=== PATIENT | female | born 1990 | race Two or more races ===

== ENCOUNTER 2022-01-05 08:29 | Outpatient (CLI) | payer OTHER | END 2022-01-05 09:55 | disposition home or self-care (01) | LOC: PRENATAL 08:29 | PROVIDERS: ATTEND Obstetrics & Gynecology Maternal & Fetal Medicine | DX: O36.80X0 Pregnancy with inconclusive fetal viability, not applicable or unspecified (principal); Z3A.13 13 weeks gestation of pregnancy ==

== ENCOUNTER 2022-02-23 13:13 | Outpatient (CLI) | payer OTHER | END 2022-02-23 14:30 | disposition home or self-care (01) | LOC: PRENATAL 13:13 | PROVIDERS: ATTEND Obstetrics & Gynecology Maternal & Fetal Medicine | DX: O35.0XX0 Maternal care for (suspected) central nervous system malformation in fetus, not applicable or unspecified (principal); O35.3XX0 Maternal care for (suspected) damage to fetus from viral disease in mother, not applicable or unspecified; O26.879 Cervical shortening, unspecified trimester; Z3A.20 20 weeks gestation of pregnancy ==

== ENCOUNTER 2022-06-22 14:31 | Inpatient (IN) | payer OTHER ==
[~2022-06-22] VITALS: Ht 170.2 cm; Wt 81.6 kg
[2022-07-13] MEDS ORDERED: FOLIC ACID0.8 M1 PO (10:12)
== END 2022-07-15 17:42 | disposition home or self-care (01) | DRG 807 ==
LOC: LDR 07-10 14:29 → OB/GYN 07-13 19:00
PROVIDERS: ADMIT Obstetrics & Gynecology; ATTEND Obstetrics & Gynecology
PROC: 10E0XZZ Delivery of Products of Conception, External Approach (ICD-10-PCS; principal; 2022-07-13)
PROC: 0KQM0ZZ Repair Perineum Muscle, Open Approach (ICD-10-PCS; 2022-07-13)
PROC: 4A1HXCZ Monitoring of Products of Conception, Cardiac Rate, External Approach (ICD-10-PCS; 2022-07-13)
DX: O70.1 Second degree perineal laceration during delivery (principal); Z37.0 Single live birth; Z3A.40 40 weeks gestation of pregnancy; Z20.822 Contact with and (suspected) exposure to COVID-19